=== PATIENT | female | born 1945 | race Caucasian/White ===

== ENCOUNTER 2016-08-07 10:35 | Day surgery (SDC) | payer MEDICARE, MEDICAID ==
[~2016-08-07 10:35] MED LIST: Acetaminophen TAB* 325 MG PO PRN; Buffered Lidocaine 0.9% SYRIN* 5 ML/SYR SYRINGE INTRADERM ONE
[2016-08-07] MEDS ORDERED: fentaNYL* 50 MCG/ML 2 ML VIAL (100 MCG VIAL) ONE (11:58)
[2016-08-07] MEDS ORDERED: Midazolam* 1 MG/ML 2 ML VIAL (2 MG) ONE ×2 (11:58→12:51)
[2016-08-07 13:33] VITALS: BP 125/65
[2016-08-07] MEDS ORDERED: Phenylephrine 2.5% OPTH.SOL* 2 ML BTL ONE (14:02)
[2016-08-07] MEDS ORDERED: Tetracaine 0.5% OPTH.SOL 4 ML* 1 DROP BTL ONE (14:02)
[2016-08-07] MEDS ORDERED: Cyclopentolate 1% OPTH.SOL* 2 ML BTL ONE (14:02)
[2016-08-07] MEDS ORDERED: Neomycin/Polymy/Dex OPHTH.OIN* 3.5 GM ONE (14:02)
[2016-08-07] MEDS ORDERED: Lidocaine 1% MPF* 2 ML VIAL ONE (14:02)
[2016-08-07] MEDS ORDERED: Flurbiprofen 0.03% OPTH.SOL* 2.5 ML BTL ONE (14:02)
[2016-08-07] MEDS ORDERED: Tropicamide 1% OPTH.SOL* BTL ONE (14:02)
[2016-08-07] MEDS ORDERED: Buffered Lidocaine 0.9% SYRIN* 5 ML/SYR SYRINGE ONE (14:02)
--- NOTE | 2016-08-08 05:33 | OP ---
DATE OF OPERATION: 08/07/16 - [facility] DATE OF : 43 SURGEON: Dr. Moreau. APPLICATION LEAD: None. ANESTHESIOLOGIST: Shahram Ordaz MD ANESTHESIA: Topical with intravenous sedation. PRE-OP DIAGNOSIS: Cataract and glaucoma, right eye. POST-OP DIAGNOSIS: Cataract and glaucoma, right eye. OPERATIVE PROCEDURE: Phacoemulsification and cataract extraction with posterior chamber intraocular lens implant, right eye and iStent placement, right eye. COMPLICATIONS: None. BLOOD LOSS: Minimal. DESCRIPTION OF PROCEDURE: The patient was brought to the operating room, received a small amount of intravenous sedation. She was prepped and draped in the usual sterile fashion for ophthalmic surgery and a drop of Tetracaine was placed into her right eye. Speculum was placed into the right eye. Paracentesis was created at the 11 o'clock position, and 0.1 cc of 1% preservative free lidocaine was injected into the anterior chamber followed by DisCoVisc. The eye was digitally stabilized while a 2.75 mm keratome was used to create a triplanar clear corneal incision at the 9 o'clock position. A continuous curvilinear capsulorrhexis was created with a cystotome and Utrata forceps. BSS on a cannula was used to hydrodissect the lens from the capsule. Phacoemulsification was performed in a [id number] technique to create four fragments, which were removed. Residual cortical material was removed with irrigation and aspiration. DisCoVisc was used to inflate the capsular bag. An AU00T0 21.0 diopter lens was folded and inserted into the capsular bag. Supplemental DisCoVisc was placed into the anterior chamber to deepen it. DisCoVisc was placed on the surface of the eye. The patient's head was rotated away from the surgeon and the microscope was rotated towards the surgeon. A gonioprism was placed on the surface of the cornea and an iStent was introduced into the anterior chamber. Under direct visualization, the iStent was inserted into the trabecular mesh work. The iStent oil field laborer and the gonioprism were removed. The patient's head and the microscope were returned to a neutral position. Irrigation and aspiration was performed to remove viscoelastic from the eye. BSS on a cannula was used to hydrate the corneal stoma and seal the wound. At the end of the case, the pupil was round, the lens was centered, and the iStent was in place. The eye pressure appeared normal and the wound was watertight. The speculum was removed and topical Maxitrol ointment was placed on the surface of the eye. The eye was closed, patched, and shielded and the patient was sent to the recovery room in stable condition with postoperative instructions and followup appointment given. [id number]/[facility] #: [id number] MTDD
== END 2016-08-07 13:28 | disposition home or self-care (01) ==
LOC: OREAST 10:35
PROVIDERS: ATTEND Ophthalmology
DX: H25.11 Age-related nuclear cataract, right eye (principal); H40.89 Other specified glaucoma; E11.8 Type 2 diabetes mellitus with unspecified complications; J44.9 Chronic obstructive pulmonary disease, unspecified; G47.33 Obstructive sleep apnea (adult) (pediatric); I47.1 Supraventricular tachycardia; Z99.81 Dependence on supplemental oxygen; Z79.84 Long term (current) use of oral hypoglycemic drugs; Z87.891 Personal history of nicotine dependence
CPT/HCPCS: 0191T; 66984; A9270-GY; C1783; J2250; J3010; V2632

== ENCOUNTER 2016-08-14 09:26 | Day surgery (SDC) | payer MEDICARE, MEDICAID ==
[~2016-08-14 09:26] MED LIST changes: -Acetaminophen TAB* 325 MG PO PRN
[2016-08-14] MEDS ORDERED: fentaNYL* 50 MCG/ML 2 ML VIAL (100 MCG VIAL) ONE (11:06)
[2016-08-14] MEDS ORDERED: Midazolam* 1 MG/ML 2 ML VIAL (2 MG) ONE (11:06)
[2016-08-14] MEDS ORDERED: Propofol* 10 MG/ML 20 ML BTL IV PUSH ONE (11:11)
[2016-08-14] MEDS ORDERED: Lidocaine 2% PF * 5 ML VIAL ONE (11:11)
[2016-08-14 11:42] VITALS: BP 156/85
[2016-08-14] MEDS ORDERED: Flurbiprofen 0.03% OPTH.SOL* 2.5 ML BTL ONE (13:38)
[2016-08-14] MEDS ORDERED: Buffered Lidocaine 0.9% SYRIN* 5 ML/SYR SYRINGE ONE (13:38)
[2016-08-14] MEDS ORDERED: Tetracaine 0.5% OPTH.SOL 4 ML* 1 DROP BTL ONE (13:38)
[2016-08-14] MEDS ORDERED: Phenylephrine 2.5% OPTH.SOL* 2 ML BTL ONE (13:38)
[2016-08-14] MEDS ORDERED: Cyclopentolate 1% OPTH.SOL* 2 ML BTL ONE (13:38)
[2016-08-14] MEDS ORDERED: Lidocaine 1% MPF* 2 ML VIAL ONE (13:38)
[2016-08-14] MEDS ORDERED: Tropicamide 1% OPTH.SOL* BTL ONE (13:38)
[2016-08-14] MEDS ORDERED: Neomycin/Polymy/Dex OPHTH.OIN* 3.5 GM ONE (13:38)
--- NOTE | 2016-08-15 11:44 | OP ---
DATE OF OPERATION: 08/14/16 - [facility] DATE OF : 43 SURGEON: Lavell Moreau MD CASTER HELPER: None. ANESTHESIOLOGIST: West Doll DO ANESTHESIA: Topical with intravenous sedation. PRE-OP DIAGNOSIS: Cataract left eye and glaucoma. POST-OP DIAGNOSIS: Cataract left eye and glaucoma. OPERATIVE PROCEDURE: Phacoemulsification and cataract extraction with posterior chamber intraocular lens implant and iStent placement. COMPLICATIONS: None. BLOOD LOSS: None. DESCRIPTION OF PROCEDURE: The patient was brought to the operating room and given a small amount of intra-venous sedation. A drop of tetracaine was placed in her left eye. The patient was prepped and draped in the usual sterile fashion for ophthalmic surgery and attention was directed to the left eye, where a speculum was placed. A paracentesis was created at the 4 o'clock position and 0.1 cc of 1% preservative-free lidocaine was injected into the anterior chamber followed by DisCoVisc. The eye was digitally stabilized while a 2.75-mm keratome was used to create a triplanar clear corneal incision at the 3 o'clock position. A continuous curvilinear capsulorrhexis was created with a cystotome and Utrata forceps. BSS on a cannula was used to hydrodissect the lens from the capsule. Phacoemulsification was performed in a divide-and- conquer technique to create 4 fragments which were removed. Residual cortical material was removed with irrigation and aspiration. DisCoVisc was used to inflate the capsular bag. An AU00T0 21.0 diopter lens was folded and inserted into the capsular bag. Supplemental DisCoVisc was added to the anterior chamber and to coat the corneal epithelial surface. The patient's head was rotated away from the surgeon and the microscope was rotated toward the surgeon. A gonioprism was placed on the surface of the eye. An iStent was introduced into the anterior chamber and, under direct visualization, was placed into the trabecular meshwork. The iStent orthodontic lab technician and gonioprism were removed. The patient's head and the microscope were returned to a neutral position. Irrigation and aspiration were performed to remove all viscoelastic from the eye. BSS on a cannula was used to hydrate the corneal stroma and seal the wound. At the end of the case, the pupil was round and the lens was centered. The eye pressure appeared normal and the wound was water tight. The iStent was in place. The speculum was removed and topical Maxitrol ointment was placed on the surface of the eye. The eye was closed, patched and shielded and the patient was sent to the recovery room in stable condition with postoperative instructions and a follow-up appointment given. [id number]/[facility] #: [id number] MTDD
== END 2016-08-14 11:50 | disposition home or self-care (01) ==
LOC: OREAST 09:26
PROVIDERS: ATTEND Ophthalmology
DX: H25.11 Age-related nuclear cataract, right eye (principal); H40.9 Unspecified glaucoma; Z87.891 Personal history of nicotine dependence; I10 Essential (primary) hypertension; G47.33 Obstructive sleep apnea (adult) (pediatric); J44.9 Chronic obstructive pulmonary disease, unspecified; Z99.81 Dependence on supplemental oxygen
CPT/HCPCS: A9270-GY; C1783; J2250; J2704; J3010

== ENCOUNTER → 2016-12-11 12:46 | Emergency (ER) | payer MEDICARE, MEDICAID ==
[~2016-12-11 12:46] MED LIST changes: -Buffered Lidocaine 0.9% SYRIN* 5 ML/SYR SYRINGE INTRADERM ONE; +Magnesium Sulfate 1 GM IV* 1 GM/100 ML BAG IV ONE; +NS 0.9% 1000 ML* 1,000 ML IV ONE
[2016-12-11 13:40] LABS: Urine Bilirubin Negative (Negative); Urine Glucose Negative (Negative); Urine Nitrite Negative (Negative)
--- NOTE | 2016-12-11 13:49 | RAD ---
HISTORY: Weakness COMPARISONS: May 23, 2015 VIEWS: 4: Frontal dual-energy and lateral views of the chest. FINDINGS: CARDIOMEDIASTINAL SILHOUETTE: The cardiomediastinal silhouette is normal. LUKAS: The lukas are normal. PLEURA: The costophrenic angles are sharp. No pleural abnormalities are noted. LUNG PARENCHYMA: The lungs are clear. ABDOMEN: The upper abdomen is clear. There is no subphrenic gas. BONES AND SOFT TISSUES: Degenerative changes are noted along the spine. OTHER: None. IMPRESSION: NO ACTIVE CARDIOPULMONARY DISEASE.
[2016-12-11 14:09] LABS: Hematocrit 35 % (35-47); Hemoglobin 11.3 g/dl (12.0-16.0); Mean Corpuscular HGB Conc 32 g/dl (31-36); Mean Corpuscular Hemoglobin 28 pg (27-31); Mean Corpuscular Volume 86 fL (80-97); Mean Platelet Volume 9 um3 (7.4-10.4); Red Blood Count 4.06 10^6/ul (4.0-5.4); Red Cell Distribution Width 15 % (10.5-15); White Blood Count 13.9 10^3/ul (3.5-10.8)
[2016-12-11 14:23] LABS: Albumin 3.8 g/dL (3.2-5.2); BUN/Creatinine Ratio 15.7 (8-20); C Reactive Protein 14.6 mg/L (< 5.00); EGFR African American 80.2 (>60); EGFR Non-African American 62.3 (>60); Globulin 3.4 g/dL (2-4); Magnesium 1.2 mg/dL (1.9-2.7); Potassium 3.9 mmol/L (3.5-5.0); Total Bilirubin 0.2 mg/dL (0.2-1.0); Total Protein 7.2 g/dL (6.4-8.9)
[2016-12-11 15:05] LABS: TSH (Thyroid Stimulating Horm) 4.35 mcIU/mL (0.34-5.60)
--- NOTE | 2016-12-11 16:30 | ED ---
Mitchell Carvajal Benjamin, scribed for Hussain Bundy MD on 12/11/16 at 1350 . HPI Diabetic - HPI Summary HPI Summary: 71yo female BIBA from PCP for fast HR and high blood sugar in 200s. Pt also reports watery diarrhea, x4 yesterday and x1 this morning. Denies sick contact, recent travelling, recent abx use, dysuria, or unusual food intake. Pt does admit decreased appetite, fatigue, and increased urinary frequency. Hx of DM. Pt reports reports recent weight loss, 4 lbs in 2 weeks. - History Of Current Complaint Time Seen by Provider: 12/11/16 13:02 Hx Obtained From: Patient Onset/Duration: Sudden Onset, Lasting Hours, Still Present Timing: Constant Severity Initially: Mild Severity Currently: Mild Aggravating: Nothing Alleviating: Nothing Associated Signs & Symptoms: Polyuria, Weight Loss - Allergies/Home Medications Allergies/Adverse Reactions: Allergies Allergy/AdvReac Type Severity Reaction Status Date / Time Codeine AdvReac Mild Abdominal Verified 12/11/16 14:24 Pain Sulfa Drugs AdvReac Mild Vomiting Verified 12/11/16 14:24 PMH/Surg Hx/FS Hx/Imm Hx Endocrine/Hematology History: Reports: Hx Diabetes, Hx Anemia - on iron, vit b12 injections monthly Denies: Hx Systemic Lupus Erythematosus Cardiovascular History: Reports: Hx Valvular Heart Disease - valvular heart disorder, Other Cardiovascular Problems/Disorders - sleep apnea Denies: Hx Congestive Heart Failure, Hx Hypertension Respiratory History: Reports: Hx Asthma - WILL INHALER IN DAY OF SURGERY, Hx Chronic Obstructive Pulmonary Disease (COPD), Hx Pulmonary Embolism - HISTORY OF SUSPECTED PE, Hx Sleep Apnea Denies: Other Respiratory Problems/Disorders GI History: Reports: Hx Gastroesophageal Reflux Disease - on med, Hx Hiatal Hernia - ON MEDICATION FOR, Hx Ulcer, Other GI Disorders - DIVERTICULOSIS History: Denies: Hx Dialysis, Hx Renal Disease Musculoskeletal History: Reports: Hx Arthritis - BACK, LEGS, FEET, Hx Bursitis - RIGHT ARM Denies: Hx Rheumatoid Arthritis, Hx Osteoporosis Sensory History: Reports: Hx Cataracts - bilat, Hx Contacts or Glasses - GLASSES Denies: Hx Hearing Aid Opthamlomology History: Reports: Hx Cataracts - bilat, Hx Contacts or Glasses - GLASSES Neurological History: Reports: Hx Headaches - SINUS HEADACHES- ALLERGY RELATED AT TIMES, Other Neuro Impairments/Disorders - SCIATICA Psychiatric History: Reports: Hx Anxiety - ON MEDS, Hx Depression - ON MEDS - Cancer History Hx Chemotherapy: No Hx Radiation Therapy: No - Surgical History Surgery Procedure, Year, and Place: GALLBLADDER, 1948, [facility] [place]. TUBAL LIGATION 1973 , [facility]. BILATERAL BUNION, 2011, [facility] [place]. LEFT ELBOW 06/2013 [facility] [place] Hx Anesthesia Reactions: No Infectious Disease History: Yes Infectious Disease History: Denies: Traveled Outside the [place] in Last 30 Days - Family History Known Family History: Positive: Hypertension - Social History Alcohol Use: None Substance Use Type: Reports: None Hx Tobacco Use: Yes Smoking Status (MU): Former Smoker Type: Cigarettes Amount Used/How Often: 2 PACKS A DAY X 47 YEARS Length of Time of Smoking/Using Tobacco: 47 YEARS Have You Smoked in the Last Year: Yes Review of Systems Positive: Fatigue Eyes: Negative ENT: Negative Cardiovascular: Negative - HR Positive: Palpitations. Negative: Chest Pain Negative: Shortness Of Breath Positive: Diarrhea Positive: frequency - increased Musculoskeletal: Negative Skin: Negative Neurological: Negative Psychological: Normal All Other Systems Reviewed And Are Negative: Yes Physical Exam - Summary Physical Exam Summary: VITAL SIGNS: Reviewed. GENERAL: Patient is a well-developed and obese female who is lying comfortable in the stretcher. Patient is not in any acute respiratory distress. HEAD AND FACE: No signs of trauma. No ecchymosis, hematomas or skull depressions. No sinus tenderness. EYES: PERRLA, EOMI x 2, No injected conjunctiva, no nystagmus. EARS: Hearing grossly intact. Ear canals and tympanic membranes are within normal limits. MOUTH: Oropharynx within normal limits. NECK: Supple, trachea is midline, no adenopathy, no JVD, no carotid bruit, no c- spine tenderness, neck with full ROM. CHEST: Symmetric, no tenderness at palpation LUNGS: Clear to auscultation bilaterally. No wheezing or crackles. CVS: Regular rate and rhythm, S1 and S2 present, no murmurs or gallops appreciated. ABDOMEN: Soft, non-tender. No signs of distention. No rebound no guarding, and no masses palpated. Bowel sounds are normal. EXTREMITIES: FROM in all major joints, no edema, no cyanosis or clubbing. NEURO: Alert and oriented x 3. No acute neurological deficits. Speech is normal and follows commands. SKIN: Dry and warm Triage Information Reviewed: Yes Vital Signs On Initial Exam: Initial Vitals Temp Pulse Resp BP Pulse Ox 98.5 F 110 22 105/55 98 12/11/16 12:51 12/11/16 12:51 12/11/16 12:51 12/11/16 12:51 12/11/16 12:51 Vital Signs Reviewed: Yes Diagnostics - Vital Signs Vital Signs Temp Pulse Resp BP Pulse Ox 12/11/16 12:51 98.5 F 110 22 105/55 98 - Laboratory Lab Results: Lab Results 12/11/16 Range/Units 13:30 Urine Color Yellow Urine Appearance Clear Urine pH 5.0 (5-9) Ur Specific Manning 1.008 L (1.010-1.030) Urine Protein Negative (Negative) Urine Ketones Negative (Negative) Urine Blood Negative (Negative) Urine Nitrate Negative (Negative) Urine Bilirubin Negative (Negative) Urine Urobilinogen Negative (Negative) Ur Leukocyte Esterase Negative (Negative) Urine Glucose Negative (Negative) Result Diagrams: 12/11/16 13:59 12/11/16 13:59 Lab Statement: Any lab studies that have been ordered have been reviewed, and results considered in the medical decision making process. - EKG 1421. Cardiac Rate: NL - 96bpm EKG Rhythm: Sinus Rhythm EKG Interpretation: no ST elevation EKG Comparison: No Significant Change - similar to EKG taken on 05/23/15. Diabetic Course/Dx - Course Assessment/Plan: In the ED course an IV access was obtained. Patient was placed in a taxation consultant. Patient was started with IV fluids. Labs without any significant abnormality except for WBCs 13.9, Glucose 170 and magnesium of 1.2 for which she was given Magnesium. Troponin #1: 0.00. EKG shows a NSR w/o ST elevations. CXR impression: No acute pathology. In the ED course she was hydrated . She is eating and drinking w/o nausea or vomiting or diarrhea. I discussed all the findings and test results with the patient. Patient was instructed to return to the emergency room immediately if any of the symptoms return or worsens. Plan of care was discussed with the patient and understands and agrees. All questions were answered at patient satisfaction. There were no further complaints or concerns. Lung exam before discharge: CTA B/L. Good air exchange. No wheezing or crackles heard. CVS: S1 and S2 present. No murmurs appreciated. Patient is alert and oriented x 3. Patient is hemodynamically stable. Patient will be discharged home with follow up PCP in the next 2-3 days - Diagnoses Provider Diagnoses: Nausea & vomiting, Acute diarrhea Discharge - Discharge Plan Condition: Stable Disposition: HOME Prescriptions: Ondansetron TAB* [Zofran 4 MG Tab*] 4 mg PO Q6H PRN #10 tab PRN Reason: Vomiting Referrals: Jennifer Shankar MD [Primary Care Provider] - The documentation as recorded by the Mitchell anderson Benjamin accurately reflects the service I personally performed and the decisions made by Gregor burns Walter, MD.
[2016-12-11 16:35] VITALS: BP 127/57
== END | disposition home or self-care (01) ==
LOC: ED 12:46
DX: R11.2 Nausea with vomiting, unspecified (principal); R19.7 Diarrhea, unspecified; R35.8 Other polyuria
CPT/HCPCS: 36415; 71020; 80053; 81003; 82550; 83735; 83880; 84443; 84484; 85025; 86140; 93005; 99283; J3475

== ENCOUNTER 2019-04-14 09:55 | Day surgery (SDC) | payer MEDICARE, MEDICAID ==
--- NOTE | 2019-04-08 12:15 | HP ---
PREOPERATIVE HISTORY AND PHYSICAL: DATE OF ADMISSION/SURGERY: 04/14/19 - [facility] DATE OF OFFICE VISIT/ENCOUNTER: 03/23/19 PRIMARY CARE PHYSICIAN: Dr. Shankar. ATTENDING SURGEON: María De Leon MD * (DICTATED BY RENATA MORROW) PROCEDURE: Right wrist carpal tunnel release, cortisone injection medial aspect of the right elbow. HISTORY OF PRESENT ILLNESS: This is a 73-year-old female with significant medical history including pulmonary hypertension, COPD, and fibrocystic disease. She is on 2 to 3 L of O2 continuously. She also is prescribed oxycodone [address] Shankar for chronic pain. She has complaints of carpal tunnel symptoms on the right wrist and hand. This has been ongoing for a couple of years. The pain radiates all the way up to her shoulder at times. She has not had any recent injury, but the symptoms are progressing. She has tried to wear a wrist brace in the past, but that has not been very helpful. She has had a left carpal tunnel release performed in the past by Dr. De Leon and she would now like to proceed with a right wrist carpal tunnel release. She is also complaining of pain at the medial aspect of her right elbow. She has been diagnosed with medial epicondylitis. She will receive a cortisone injection as well on the day of surgery. PAST MEDICAL HISTORY: 1. Asthma. 2. Pulmonary hypertension. 3. Diabetes. 4. Hypercholesterolemia. 5. Sleep apnea with CPAP. 6. Peripheral neuropathy. 7. GERD. 8. Fibrocystic disease. 9. Nonalcoholic fatty liver. 10. Depression/anxiety. 11. COPD. PAST SURGICAL HISTORY: 1. Cholecystectomy. 2. Foot surgery for bunions. 3. Tubal ligation. 4. Left wrist carpal tunnel release. MEDICATIONS: 1. Cyanocobalamin 1000 mcg/mL. 2. Diclofenac sodium 1% apply 2 g to affected area twice daily. 3. Ferrous sulfate 325 mg daily. 4. Fluoxetine HCl 40 mg daily. 5. Fluticasone propionate 50 mcg 1 spray each nostril daily. 6. Furosemide 20 mg daily. 7. Glipizide/metformin 5/500 mg 2 tablets twice a day. 8. Januvia 100 mg daily. 9. Levemir FlexTouch 1000 units/mL, 24 units once daily. 10. Lisinopril 2.5 mg daily. 11. Montelukast sodium 10 mg daily. 12. Nystatin p.r.n. 13. Omeprazole 40 mg daily. 14. Oxycodone HCl 5 mg q.4 to 6 hours p.r.n. pain. 15. Oxygen 2 to 3 L nasal cannula continuous. 16. Pazeo 0.2% one drop each eye daily. 17. Pravastatin sodium 40 mg daily. 18. ProAir HFA inhaler 2 puffs q.4 hours p.r.n. 19. Spiriva HandiHaler 18 mcg 1 inhalation daily. 20. Taztia XT 240 mg daily. 21. Ventolin inhaler 2 puffs as needed. 22. Vitamin B12 shots q.2 weeks or p.r.n. 23. Vitamin C 500 mg daily. 24. Vitamin D3 1000 units daily. 25. Zyrtec Allergy 10 mg daily. ALLERGIES: CODEINE causes an increase in pain; SULFA ANTIBIOTICS - nausea and vomiting; IBUPROFEN - increase in pain. FAMILY MEDICAL HISTORY: Heart disease and diabetes. SOCIAL HISTORY: The patient is retired. She is a former smoker. She quit 20 years ago. Prior to that, she smoked 2 to 3 packs a day for 40 years. She denies recreational drug use. She drinks alcohol on occasion. REVIEW OF SYSTEMS: Positive for night sweats, sore throat, runny nose, hearing changes, shortness of breath, cough, diarrhea, peripheral neuropathy, weakness, seasonal allergies, hay fever, depression, anxiety. Review of systems is otherwise negative for cephalic, cardiovascular, respiratory, gastrointestinal, genitourinary, other musculoskeletal, skin, neurologic, endocrine, and hematologic symptoms. PHYSICAL EXAMINATION GENERAL: A well-developed, well-nourished 73-year-old female, in no acute distress. VITAL SIGNS: Height 5 feet 5-1/2 inches, weight 234 pounds. Pulse rate 104, blood pressure 140/84. HEENT: Normocephalic, atraumatic. Pupils are equal, round, and reactive to light and accommodation. Extraocular movements are intact. Throat is clear. NECK: Supple. No palpable lymph nodes. PULMONARY: Lungs are clear to auscultation bilaterally. No wheezes, rales, or rhonchi. CARDIOVASCULAR: Regular rate and rhythm. S1, S2. No murmurs, rubs, or gallops. No edema. ABDOMEN: Positive bowel sounds. Soft, nontender. NEUROLOGICAL: Alert and oriented x3. Cranial nerves II through XII are intact. MUSCULOSKELETAL: On exam of her right hand, she has some thenar wasting and weakness with thumb abduction. She has good motion in her fingers and wrist. She has a positive Tinel's sign at the median nerve of the wrist. On exam of her right elbow, there is no visible swelling, but she has exquisite tenderness to palpation at the medial epicondyle, increased pain with end ranges of both flexion and extension along with wrist flexion. IMPRESSION: 1. Right wrist carpal tunnel syndrome. 2. Right elbow medial epicondylitis. PLAN: The patient is scheduled to undergo a right wrist carpal tunnel release and a cortisone injection at the medial aspect of the right elbow with Dr. De Leon on 04/14/19. She will return to the office 10 days postop for followup and suture removal. She has oxycodone as prescribed by Dr. Shankar, which she will plan on using for postoperative pain management. RENATA MORROW [id number]/[facility] #: [id number] EROS
[~2019-04-14 09:55] MED LIST changes: +Buffered Lidocaine 1% SYRIN* 1 ML/SYRINGE INTRADERM ONE; +DiMENhydriNATE IV* 50 MG/ML VIAL IV PUSH PRN; +Famotidine IV* 10 MG/ML 2 ML (20 mg) IV ONE; +Lactated Ringers 1000 ML Bag* 1,000 ML IV SCH; -Magnesium Sulfate 1 GM IV* 1 GM/100 ML BAG IV ONE; -NS 0.9% 1000 ML* 1,000 ML IV ONE; +Naloxone* 0.4 MG/ML 1 ML VIAL IV PRN; +Ondansetron ODT TAB* 4 MG PO ONE; +PROCHLORPERAZINE INJ 5 MG/ML 2 ML VIAL IV PRN; +oxyCODONE TAB* 5 MG TAB PO PRN
[2019-04-14] MEDS ORDERED: Ondansetron ODT TAB* 4 MG ONE (10:04)
[2019-04-14] MEDS ORDERED: Famotidine IV* 10 MG/ML 2 ML (20 mg) ONE (10:04)
[2019-04-14] MEDS ORDERED: methylPREDNISolone ACETATE 80* 80 MG/ML 1 ML VIAL ONE (10:26)
[2019-04-14] MEDS ORDERED: Lidocaine 1% INJ* 10 MG/ML 30 ML SDV ONE ×2 (10:27→11:13)
[2019-04-14] MEDS ORDERED: Midazolam* 1 MG/ML 5 ML VIAL (5 MG) ONE (11:06)
[2019-04-14] MEDS ORDERED: fentaNYL* 50 MCG/ML 2 ML VIAL (100 MCG VIAL) ONE (11:06)
[2019-04-14] MEDS ORDERED: KETAMINE HCL* 50 MG/ML 10 ML VIAL ONE (11:18)
[2019-04-14] MEDS ORDERED: Lidocaine 2% PF * 5 ML VIAL ONE (11:35)
[2019-04-14] MEDS ORDERED: Propofol* 10 MG/ML 20 ML BTL ONE (11:35)
[2019-04-14 12:07] VITALS: BP 121/70
--- NOTE | 2019-04-15 02:25 | OP ---
DATE OF OPERATION: 04/14/19 [facility] DATE OF : 43 SURGEON: María De Leon MD AUTOMATIC LATHE SETTER: RENATA Simpson ANESTHESIA: Local MAC. PRE-OP DIAGNOSES: 1. Right carpal tunnel syndrome. 2. Medial epicondylitis on the right elbow. POST-OP DIAGNOSES: 1. Right carpal tunnel syndrome. 2. Medial epicondylitis on the right elbow. OPERATIVE PROCEDURE: Right elbow injection and right carpal tunnel release. ESTIMATED BLOOD LOSS: Zero. TOURNIQUET TIME: About 10 minutes. INDICATIONS FOR PROCEDURE: Amalia is a 73-year-old woman who has numbness and tingling in the median nerve distribution of her right hand as well as significant pain on the medial aspect of her right elbow. She presents for right elbow injection and right carpal tunnel release. DESCRIPTION OF PROCEDURE: The patient was brought to the operating room, was given a sedation anesthetic and an injection of 80 mg of Depo-Medrol and 2 cc of 1% plain lidocaine at the right medial epicondyle. She was then given an injection of 10 cc of 1% plain lidocaine in the palm of her right hand. The skin of her right upper extremity was prepped and draped in the usual sterile fashion. The upper extremity was exsanguinated and the tourniquet elevated to 250 mmHg. A longitudinal incision was made in the palm in line with the ring finger and we dissected through the subcutaneous tissue down to the transverse carpal ligament. The ligament was divided sharply with a knife and then more proximally with the scissors. The nerve was dissected free from the surrounding tissue and there was an area of moderate compression at the mid portion of the ligament. The wound was irrigated and the skin edges reapproximated with 4-0 nylon suture. The wound was dressed with Xeroform, 4x4 , Webril, and an Baldemar wrap. The patient tolerated the procedure well and was brought to the recovery room in good condition. [id number]/[facility] #: [id number] MTDSara
== END 2019-04-14 12:29 | disposition home or self-care (01) ==
LOC: OREAST 09:55
PROVIDERS: ATTEND Orthopaedic Surgery
DX: G56.01 Carpal tunnel syndrome, right upper limb (principal); M77.01 Medial epicondylitis, right elbow; G47.33 Obstructive sleep apnea (adult) (pediatric); E11.9 Type 2 diabetes mellitus without complications; Z79.84 Long term (current) use of oral hypoglycemic drugs; J44.9 Chronic obstructive pulmonary disease, unspecified; Z99.81 Dependence on supplemental oxygen; I27.20 Pulmonary hypertension, unspecified; E78.00 Pure hypercholesterolemia, unspecified; F41.8 Other specified anxiety disorders; K76.0 Fatty (change of) liver, not elsewhere classified; Z87.891 Personal history of nicotine dependence
CPT/HCPCS: A9270-GY; J1040; J2250; J2704; J3010

== ENCOUNTER 2020-04-15 11:03 | Observation (INO) ==
[~2020-04-15 11:03] MED LIST changes: +Buffered Lidocaine 1% SYRIN 1 ml INTRADERM ONE; -Buffered Lidocaine 1% SYRIN* 1 ML/SYRINGE INTRADERM ONE; -DiMENhydriNATE IV* 50 MG/ML VIAL IV PUSH PRN; -Famotidine IV* 10 MG/ML 2 ML (20 mg) IV ONE; -Lactated Ringers 1000 ML Bag* 1,000 ML IV SCH; +Lactated Ringers 1000 ml BAG 1,000 ML IV SCH; -Naloxone* 0.4 MG/ML 1 ML VIAL IV PRN; -Ondansetron ODT TAB* 4 MG PO ONE; -PROCHLORPERAZINE INJ 5 MG/ML 2 ML VIAL IV PRN; -oxyCODONE TAB* 5 MG TAB PO PRN
[2020-04-15] MEDS ORDERED: ceFAZolin 2 GM PREMIX 2 GM/50 ML BAG ONE (11:35)
[2020-04-15] MEDS ORDERED: fentaNYL 100 mcg/2 ml 50 MCG/ML VIAL ONE (12:48)
[2020-04-15] MEDS ORDERED: Midazolam 5 mg/5 ml VIAL 1 mg/ml 5 ml VIAL (5 mg) ONE (12:48)
[2020-04-15] MEDS ORDERED: ROPIVACAINE 5 MG/ML 30 ML BTL (0.5%) ONE ×2 (14:13→14:56)
[2020-04-15] MEDS ORDERED: Lidocaine 1% MPF 5 ML VIAL ONE (14:56)
[2020-04-15] MEDS ORDERED: Rocuronium 50 mg VIAL 10 mg/ml 5 ml VIAL (50 mg) ONE (15:24)
[2020-04-15] MEDS ORDERED: ceFAZolin 1 GM ADVAN 1 GM ADDV.VIAL IVPB ONE (15:28)
[2020-04-15] MEDS ORDERED: diPHENhydraMINE IV 50 MG/ML 1 ml VIAL (BENADRYL) IV PRN (15:34)
[2020-04-15] MEDS ORDERED: Morphine 2 MG/ML SYRINGE IV PRN (15:34)
[2020-04-15] MEDS ORDERED: diPHENhydraMINE 25 mg TAB PO PRN (15:34)
[2020-04-15] MEDS ORDERED: Lactulose 30 ml UDC PO PRN (15:34)
[2020-04-15] MEDS ORDERED: Ondansetron 4 mg VIAL 2 MG/ML 2 ml VIAL IV PRN (15:34)
[2020-04-15] MEDS ORDERED: Magnesium Hydroxide LIQ 30 ML UDC PO PRN (15:34)
[2020-04-15] MEDS ORDERED: Ondansetron ODT 4 mg TAB 4 MG TAB PO PRN (15:34)
[2020-04-15] MEDS ORDERED: Ketamine HCL 50 mg/ml 10 ml VIAL (500 MG) ONE (15:44)
[2020-04-15] MEDS ORDERED: Levalbuterol 0.63MG/3ML NEB UNIT OF USE INH ONE (15:49)
[2020-04-15] MEDS ORDERED: Levalbuterol HFA INHALER MDI ONE (15:50)
[2020-04-15] MEDS ORDERED: Levalbuterol 1.25MG/0.5ML NEB.SOL ONE (15:50)
[2020-04-15] MEDS ORDERED: Lidocaine 2% PF 5 ML VIAL ONE (15:59)
[2020-04-15] MEDS ORDERED: Dexamethasone IV 4 MG/ML VIAL 1 ml VIAL ONE (15:59)
[2020-04-15] MEDS ORDERED: Succinylcholine 200 mg VIAL 20 mg/ml 10 ml VIAL (200 mg) ONE (15:59)
[2020-04-15] MEDS ORDERED: Propofol 10 MG/ML 20 ML BTL ONE (15:59)
[2020-04-15] MEDS ORDERED: Ondansetron 4 mg VIAL 2 MG/ML 2 ml VIAL ONE (15:59)
[2020-04-15] MEDS ORDERED: DiMENhydriNATE IV 50 mg/ml 1 ml VIAL ONE (15:59)
[2020-04-15] MEDS ORDERED: Lactated Ringers 1000 ml BAG 1,000 ML IV SCH (16:00)
[2020-04-15] MEDS ORDERED: HYDROmorphone 1 MG/1 ML SYRINGE ONE ×2 (17:44→19:05)
[2020-04-15] MEDS ORDERED: Phenylephrine 40 mcg/mL 10mL (400mcg) SYRINGE ONE (17:46)
[2020-04-15] MEDS ORDERED: Acetaminophen IV 1 GM/100ML 1,000 MG/100 ML VIAL IVPB ONE (18:23)
[2020-04-15] MEDS ORDERED: Levalbuterol 0.63MG/3ML NEB UNIT OF USE INH PRN (18:23)
[2020-04-15] MEDS ORDERED: Naloxone 0.4 mg VIAL 0.4 mg/ml 1 ml VIAL IV PRN (18:23)
[2020-04-15] MEDS ORDERED: DiMENhydriNATE IV 50 mg/ml 1 ml VIAL IV PUSH PRN (18:23)
[2020-04-15] MEDS ORDERED: Acetaminophen IV 1 GM/100ML 100 ML ONE (18:27)
[2020-04-15] MEDS ORDERED: Dextrose 50% Syringe 50 ml 25 GM/50 ML SYRINGE IV PUSH PRN (18:28)
[2020-04-15] MEDS: HYDROmorphone 1 MG/1 ML SYRINGE IV PRN ×3 (19:06→19:25)
[2020-04-15] MEDS: Magnesium Hydroxide LIQ 30 ML UDC PO SCH (22:05)
[2020-04-15] MEDS: Insulin GLARGINE 100 un/ml 10 ml VIAL SUBCUT SCH (22:06)
[2020-04-16] MEDS: Mometasone/Formoter 100/5 MDI INH SCH ×2 (00:02→07:55)
[2020-04-16] MEDS: ceFAZolin 1 GM ADVAN 1 GM in NS 0.9% 50 ML 50 ML IVPB SCH ×3 (00:37→15:16)
[2020-04-16 06:01] LABS: Calcium 8.1 mg/dL (8.6-10.3); EGFR African American 74.8 (>60); EGFR Non-African American 61.8 (>60); Potassium 5.1 mmol/L (3.5-5.0)
[2020-04-16 06:02] LABS: Hematocrit 32 % (35-47); Hemoglobin 10.5 g/dL (12.0-16.0); Mean Platelet Volume 8.7 fL (7.4-10.4); Platelet Count 243 10^3/uL (150-450)
[2020-04-16 08:49] LABS: Albumin 3.6 g/dL (3.2-5.2)
[2020-04-16] MEDS ORDERED: Vitamin THERAPEUTIC TAB PO SCH (09:00)
[2020-04-16] MEDS ORDERED: Cholecalciferol (VIT D3) 1,000 unit TAB PO SCH (09:00)
[2020-04-16] MEDS: Magnesium Hydroxide LIQ 30 ML UDC PO SCH (09:19)
[2020-04-16] MEDS: Fluticasone NASAL SPRAY 50MCG 16 gm SPRAY BTL BOTH NARES SCH ×2 (09:22→09:33)
[2020-04-16] MEDS: Insulin GLARGINE 100 un/ml 10 ml VIAL SUBCUT SCH (09:23)
[2020-04-16 11:53] VITALS: BP 125/65
== END 2020-04-16 16:08 | disposition home or self-care (01) ==
LOC: SSU 11:03 → OR 11:03
PROVIDERS: ADMIT Orthopaedic Surgery Adult Reconstructive Orthopaedic Surgery; ATTEND Orthopaedic Surgery Adult Reconstructive Orthopaedic Surgery

== ENCOUNTER 2021-12-04 09:41 | Observation (INO) ==
[2021-12-04] MEDS ORDERED: NS 0.9% 1000 ml BAG 1,000 ML IV ONE (10:42)
[2021-12-04] MEDS ORDERED: Pantoprazole VIAL 40 MG VIAL IV ONE (10:42)
[2021-12-04 12:15] LABS: ABS Basophils 0.1 10^3/ul (0-0.2); ABS Eosinophils 0.1 10^3/ul (0-0.6); ABS Lymphocytes 1.6 10^3/ul (1.0-4.8); ABS Monocytes 0.7 10^3/ul (0-0.8); ABS Neutrophils 7.2 10^3/ul (1.5-7.7); Eosinophil % 1.5 %; Hematocrit 36 % (35-47); Hemoglobin 11.5 g/dL (12.0-16.0); Lymphocyte % 16.2 %; Mean Corpuscular HGB Conc 32 g/dL (31-36); Mean Corpuscular Hemoglobin 28 pg (27-31); Mean Corpuscular Volume 89 fL (80-97); Mean Platelet Volume 8.5 fL (7.4-10.4); Platelet Count 243 10^3/uL (150-450); Red Blood Count 4.09 10^6 /uL (3.70-4.87); Red Cell Distribution Width 15 % (10-15); White Blood Count 9.8 10^3/uL (3.5-10.8)
[2021-12-04 12:23] LABS: INR 0.94 (0.89-1.11)
[2021-12-04 13:05] LABS: Albumin/Globulin Ratio 1.6 (1-3); Globulin 2.5 g/dL (2-4); Potassium 4.5 mmol/L (3.5-5.0); Total Bilirubin 0.3 mg/dL (0.2-1.0); Total Protein 6.5 g/dL (6.4-8.9); eGFR CKD-EPI 60.9 (>60)
[2021-12-04] MEDS ORDERED: Iodixanol (CONTRAST) 320 MG/ML 100 ML SDV IV ONE (13:15)
[2021-12-04 16:27] LABS: ABS Eosinophils 0.1 10^3/ul (0-0.6); ABS Lymphocytes 1.5 10^3/ul (1.0-4.8); ABS Monocytes 0.9 10^3/ul (0-0.8); ABS Neutrophils 7.6 10^3/ul (1.5-7.7); Eosinophil % 1.2 %; Hematocrit 35 % (35-47); Hemoglobin 11.1 g/dL (12.0-16.0); Lymphocyte % 14.8 %; Mean Corpuscular HGB Conc 32 g/dL (31-36); Mean Corpuscular Hemoglobin 28 pg (27-31); Mean Corpuscular Volume 89 fL (80-97); Mean Platelet Volume 8.4 fL (7.4-10.4); Platelet Count 225 10^3/uL (150-450); Red Blood Count 3.94 10^6 /uL (3.70-4.87); Red Cell Distribution Width 15 % (10-15); White Blood Count 10.2 10^3/uL (3.5-10.8)
[2021-12-04] MEDS ORDERED: Ondansetron 4 mg VIAL 2 MG/ML 2 ml VIAL IV PRN (17:01)
[2021-12-04] MEDS ORDERED: Al Hydrox/Mg Hydrox/Simet LIQ 30 ML UDC PO PRN (17:01)
[2021-12-04] MEDS ORDERED: oxyCODONE/Acetamin 5/325 mg TAB PO PRN (17:05)
[2021-12-04] MEDS ORDERED: Albuterol HFA INHALER 8 gm MDI INH PRN (17:05)
[2021-12-04] MEDS ORDERED: NS 0.9% 1000 ml BAG 1,000 ML IV SCH (17:15)
[2021-12-04] MEDS: Mometasone/Formoter 100/5 MDI INH SCH (20:34)
[2021-12-05 01:38] LABS: Hematocrit 36 % (35-47); Hemoglobin 11.6 g/dL (12.0-16.0)
[2021-12-05 06:47] LABS: Hematocrit 35 % (35-47); Hemoglobin 11.3 g/dL (12.0-16.0)
[2021-12-05 07:11] LABS: Calcium 8.7 mg/dL (8.6-10.3); Potassium 4.3 mmol/L (3.5-5.0); eGFR CKD-EPI 74.7 (>60)
[2021-12-05] MEDS: Mometasone/Formoter 100/5 MDI INH SCH ×2 (08:40→20:18)
[2021-12-05] MEDS: Fluticasone NASAL SPRAY 50MCG 16 gm SPRAY BTL BOTH NARES SCH (13:43)
[2021-12-05 15:07] LABS: Hematocrit 33 % (35-47); Hemoglobin 10.7 g/dL (12.0-16.0)
[2021-12-05] MEDS ORDERED: Dextrose 50% Syringe 50 ml 25 GM/50 ML SYRINGE IV PUSH PRN (17:16)
[2021-12-06 07:41] LABS: ABS Eosinophils 0.2 10^3/ul (0-0.6); ABS Lymphocytes 1.7 10^3/ul (1.0-4.8); ABS Monocytes 0.7 10^3/ul (0-0.8); ABS Neutrophils 5.5 10^3/ul (1.5-7.7); Eosinophil % 2.2 %; Hematocrit 36 % (35-47); Hemoglobin 11.4 g/dL (12.0-16.0); Mean Corpuscular HGB Conc 32 g/dL (31-36); Mean Corpuscular Hemoglobin 28 pg (27-31); Mean Corpuscular Volume 89 fL (80-97); Mean Platelet Volume 8.4 fL (7.4-10.4); Platelet Count 232 10^3/uL (150-450); Red Blood Count 4.01 10^6 /uL (3.70-4.87); Red Cell Distribution Width 15 % (10-15)
[2021-12-06] MEDS: Mometasone/Formoter 100/5 MDI INH SCH (08:00)
[2021-12-06] MEDS: Fluticasone NASAL SPRAY 50MCG 16 gm SPRAY BTL BOTH NARES SCH (08:05)
[2021-12-06 08:13] LABS: Calcium 9.3 mg/dL (8.6-10.3)
[2021-12-06 08:14] LABS: Potassium 5.3 mmol/L (3.5-5.0)
[2021-12-06] MEDS ORDERED: SODIUM ZIRCONIUM CYCLOSILICATE 10 GM PACKET PO ONE (11:23)
[2021-12-06 16:12] VITALS: BP 149/80
== END 2021-12-06 17:35 | disposition home or self-care (01) ==
LOC: ED 09:41 → EDHOLD 09:41 → MED 12-05 00:45
PROVIDERS: ADMIT Internal Medicine; ATTEND Internal Medicine

== ENCOUNTER 2021-12-20 07:40 | Observation (INO) ==
[2021-12-20] MEDS ORDERED: Pantoprazole VIAL 40 MG VIAL IV ONE (08:01)
[2021-12-20] MEDS ORDERED: NS 0.9% 1000 ml BAG 1,000 ML IV ONE (08:01)
[2021-12-20] MEDS ORDERED: Ondansetron 4 mg VIAL 2 MG/ML 2 ml VIAL IV ONE (08:43)
[2021-12-20 09:36] LABS: CO2 Carbon Dioxide 32 mmol/L (22-32); Calcium 9.3 mg/dL (8.6-10.3); Chloride 106 mmol/L (101-111); Sodium 142 mmol/L (135-145)
[2021-12-20 09:42] LABS: ALT 15 U/L (7-52); Albumin/Globulin Ratio 1.6 (1-3); Alkaline Phosphatase 47 U/L (35-149); Blood Urea Nitrogen 20 mg/dL (6-24); Globulin 2.5 g/dL (2-4); Glucose 149 mg/dL (70-100); Total Protein 6.5 g/dL (6.4-8.9); eGFR CKD-EPI 75.8 (>60)
[2021-12-20 09:45] LABS: Activated Partial Thrombo Time 21.4 seconds (26.0-38.0); INR 0.9 (0.89-1.11)
[2021-12-20 09:48] LABS: Anion Gap 4 mmol/L (2-11)
[2021-12-20 10:33] LABS: ABS Basophils 0.1 10^3/ul (0-0.2); ABS Eosinophils 0.2 10^3/ul (0-0.6); ABS Lymphocytes 1.5 10^3/ul (1.0-4.8); ABS Monocytes 0.7 10^3/ul (0-0.8); ABS Neutrophils 6.3 10^3/ul (1.5-7.7); Eosinophil % 1.9 %; Hematocrit 34 % (35-47); Hemoglobin 10.9 g/dL (12.0-16.0); Lymphocyte % 17.3 %; Mean Corpuscular HGB Conc 32 g/dL (31-36); Mean Corpuscular Hemoglobin 29 pg (27-31); Mean Corpuscular Volume 89 fL (80-97); Mean Platelet Volume 8.9 fL (7.4-10.4); Platelet Count 226 10^3/uL (150-450); Red Blood Count 3.82 10^6 /uL (3.70-4.87); Red Cell Distribution Width 15 % (10-15); White Blood Count 8.8 10^3/uL (3.5-10.8)
[2021-12-20 10:54] LABS: Potassium Redraw 4.5 mmol/L (3.5-5.0)
[2021-12-20] MEDS ORDERED: PEG 3000 GI LAVAGE 1 GALLON PO ONE (12:06)
[2021-12-20] MEDS ORDERED: Dextrose 50% Syringe 50 ml 25 GM/50 ML SYRINGE IV PUSH PRN (14:40)
[2021-12-20] MEDS ORDERED: Albuterol HFA INHALER 8 gm MDI INH PRN (14:41)
[2021-12-20] MEDS ORDERED: Morphine 2 MG/ML SYRINGE IV PRN (14:45)
[2021-12-20 15:06] LABS: Magnesium 1.4 mg/dL (1.9-2.7)
[2021-12-20] MEDS: NS 0.9% 1000 ml BAG 1,000 ML IV SCH ×2 (15:12→17:52)
[2021-12-20] MEDS ORDERED: Magnesium Sulf 4 GM/100 ML IV 4,000 MG/100 ML BAG IVPB ONE (15:23)
[2021-12-20] MEDS ORDERED: Midazolam 5 mg/5 ml VIAL 1 mg/ml 5 ml VIAL (5 mg) ONE (15:27)
[2021-12-20] MEDS ORDERED: fentaNYL 100 mcg/2 ml 50 MCG/ML VIAL ONE (15:27)
[2021-12-20 17:41] LABS: C Reactive Protein 4.16 mg/L (<8.01)
[2021-12-20] MEDS ORDERED: oxyCODONE/Acetamin 5/325 mg TAB PO PRN (17:43)
[2021-12-20 18:53] LABS: Hematocrit 36 % (35-47); Hemoglobin 11.3 g/dL (12.0-16.0)
[2021-12-20] MEDS: Mometasone/Formoter 100/5 MDI INH SCH (19:14)
[2021-12-21] MEDS: NS 0.9% 1000 ml BAG 1,000 ML IV SCH (04:03)
[2021-12-21 05:24] LABS: ABS Basophils 0.1 10^3/ul (0-0.2); ABS Eosinophils 0.2 10^3/ul (0-0.6); ABS Lymphocytes 1.6 10^3/ul (1.0-4.8); ABS Monocytes 0.7 10^3/ul (0-0.8); ABS Neutrophils 5.8 10^3/ul (1.5-7.7); Eosinophil % 2.6 %; Hematocrit 34 % (35-47); Lymphocyte % 19.2 %; Mean Corpuscular HGB Conc 32 g/dL (31-36); Mean Corpuscular Hemoglobin 29 pg (27-31); Mean Corpuscular Volume 90 fL (80-97); Mean Platelet Volume 8.8 fL (7.4-10.4); Platelet Count 222 10^3/uL (150-450); Red Blood Count 3.83 10^6 /uL (3.70-4.87); Red Cell Distribution Width 15 % (10-15); White Blood Count 8.4 10^3/uL (3.5-10.8)
[2021-12-21 06:12] LABS: Blood Urea Nitrogen 11 mg/dL (6-24); CO2 Carbon Dioxide 31 mmol/L (22-32); Calcium 8.3 mg/dL (8.6-10.3); Chloride 108 mmol/L (101-111); Glucose 137 mg/dL (70-100); Magnesium 2.2 mg/dL (1.9-2.7); Potassium 4.4 mmol/L (3.5-5.0); Sodium 139 mmol/L (135-145); eGFR CKD-EPI 80.7 (>60)
[2021-12-21] MEDS: Pantoprazole VIAL 40 MG VIAL IV SCH (08:04)
[2021-12-21] MEDS: Fluticasone NASAL SPRAY 50MCG 16 gm SPRAY BTL INTRANASAL SCH (08:04)
[2021-12-21] MEDS: Mometasone/Formoter 100/5 MDI INH SCH ×3 (08:13→19:48)
[2021-12-21] MEDS ORDERED: Lactated Ringers 1000 ml BAG 1,000 ML IV SCH (12:00)
[2021-12-21] MEDS ORDERED: Bupivacaine 0.25% EPI 200,000 30 ML SDV ONE (12:15)
[2021-12-21] MEDS ORDERED: Gelfoam Sponge SIZE 100 SPONGE ONE (12:15)
[2021-12-21] MEDS ORDERED: Midazolam 2 mg/2 ml VIAL 1 mg/ml 2 ml VIAL (2 mg) ONE (12:52)
[2021-12-21] MEDS ORDERED: Dexamethasone IV 4 MG/ML VIAL 1 ml VIAL ONE (12:52)
[2021-12-21] MEDS ORDERED: Ondansetron 4 mg VIAL 2 MG/ML 2 ml VIAL ONE (12:52)
[2021-12-21] MEDS ORDERED: Propofol 10 MG/ML 20 ML BTL ONE (12:52)
[2021-12-21] MEDS ORDERED: Succinylcholine 200 mg VIAL 20 mg/ml 10 ml VIAL (200 mg) ONE (12:52)
[2021-12-21] MEDS ORDERED: Lidocaine 2% PF 5 ML VIAL ONE (12:52)
[2021-12-21] MEDS ORDERED: fentaNYL 100 mcg/2 ml 50 MCG/ML VIAL ONE (12:52)
[2021-12-21] MEDS ORDERED: Phenylephrine 40 mcg/mL 10mL (400mcg) SYRINGE ONE (13:17)
[2021-12-21] MEDS ORDERED: fentaNYL 100 mcg/2 ml 50 MCG/ML VIAL IV PRN (13:54)
[2021-12-21] MEDS ORDERED: Acetaminophen IV 1 GM/100ML 1,000 MG/100 ML BAG IV ONE (13:54)
[2021-12-21] MEDS ORDERED: Levalbuterol 0.63MG/3ML NEB UNIT OF USE INH PRN (13:54)
[2021-12-21] MEDS ORDERED: Naloxone 0.4 mg VIAL 0.4 mg/ml 1 ml VIAL IV PRN (13:54)
[2021-12-21] MEDS ORDERED: Ondansetron 4 mg VIAL 2 MG/ML 2 ml VIAL IV PRN (13:54)
[2021-12-22 06:24] LABS: ABS Lymphocytes 1.1 10^3/ul (1.0-4.8); ABS Monocytes 0.9 10^3/ul (0-0.8); ABS Neutrophils 11.1 10^3/ul (1.5-7.7); Eosinophil % 0.1 %; Hematocrit 31 % (35-47); Hemoglobin 9.9 g/dL (12.0-16.0); Lymphocyte % 8.2 %; Mean Corpuscular HGB Conc 32 g/dL (31-36); Mean Corpuscular Hemoglobin 29 pg (27-31); Mean Corpuscular Volume 90 fL (80-97); Platelet Count 201 10^3/uL (150-450); Red Blood Count 3.46 10^6 /uL (3.70-4.87); Red Cell Distribution Width 15 % (10-15); White Blood Count 13.1 10^3/uL (3.5-10.8)
[2021-12-22 07:38] LABS: Calcium 8.3 mg/dL (8.6-10.3); eGFR CKD-EPI 69.5 (>60)
[2021-12-22] MEDS: Mometasone/Formoter 100/5 MDI INH SCH (08:12)
[2021-12-22] MEDS: Pantoprazole VIAL 40 MG VIAL IV SCH (08:38)
[2021-12-22] MEDS: Fluticasone NASAL SPRAY 50MCG 16 gm SPRAY BTL INTRANASAL SCH (09:49)
[2021-12-22 13:47] LABS: Hematocrit 31 % (35-47); Hemoglobin 9.7 g/dL (12.0-16.0)
[2021-12-22 15:34] VITALS: BP 104/61
== END 2021-12-22 17:45 | disposition home or self-care (01) ==
LOC: ED 07:40 → EDHOLD 07:40 → SUATTDRO 14:32 → MED 18:21
PROVIDERS: ADMIT Hospitalist; ATTEND Internal Medicine